=== PATIENT | male | born 1995 | race Two or more races ===

== ENCOUNTER 2021-03-01 16:04 | Emergency (ER) | payer SELFPAY ==
[~2021-03-01] VITALS: Ht 165.1 cm; Wt 131.5 kg
[2021-03-01 16:37] VITALS: BP 138/80
[2021-03-01] MEDS ORDERED: PROM118S5 PO (16:51)
[2021-03-01] MEDS ORDERED: AMOX500C2 PO (16:52)
[2021-03-01] MEDS ORDERED: IBUP-1955 PO (16:52)
--- NOTE | 2021-03-01 17:02 | NUR ---
[facility],KATHYA HYMAN CALLED FOR PICK-UP
== END 2021-03-01 17:03 | disposition home or self-care (01) ==
LOC: ER 16:08
DX: B34.9 Viral infection, unspecified (principal); H66.91 Otitis media, unspecified, right ear; Z79.2 Long term (current) use of antibiotics; Z79.1 Long term (current) use of non-steroidal anti-inflammatories (NSAID); Z79.899 Other long term (current) drug therapy

== ENCOUNTER 2023-01-01 03:09 | Emergency (ER) | payer SELFPAY ==
[~2023-01-01] VITALS: Ht 165.1 cm; Wt 158.8 kg
[~2023-01-01 03:09] MED LIST: AMOX500C2 PO; IBUP-1955 PO; PROM118S5 PO
[2023-01-01] MEDS ORDERED: CHLORDIAZEPOXIDE HCL 25 MG CAPSULE ONE (03:41)
[2023-01-01] MEDS ORDERED: ONDANSETRON 4 MG TAB.RAPDIS ONE (03:41)
[2023-01-01] MEDS ORDERED: ONDA4TAB5 PO (03:54)
[2023-01-01] MEDS ORDERED: LORAZEPAM 1 MG TABLET ONE (03:57)
[2023-01-01] MEDS ORDERED: ONDANSETRON 4 MG TAB.RAPDIS SL ONE (04:00)
[2023-01-01] MEDS ORDERED: LORAZEPAM 1 MG TABLET PO ONE (04:00)
[2023-01-01] MEDS ORDERED: CHLORDIAZEPOXIDE HCL 25 MG CAPSULE PO ONE (04:00)
[2023-01-01 04:06] VITALS: BP 130/89; TEMP 98.2; O2SAT 97
== END 2023-01-01 04:06 | disposition home or self-care (01) ==
LOC: ER 03:14
DX: F10.239 Alcohol dependence with withdrawal, unspecified (principal); F17.200 Nicotine dependence, unspecified, uncomplicated; Z79.899 Other long term (current) drug therapy; Z59.00 Homelessness unspecified; Z88.1 Allergy status to other antibiotic agents; Y90.9 Presence of alcohol in blood, level not specified
CPT/HCPCS: 99283; Q0162